=== PATIENT | male | born 1980 | race Two or more races ===

== ENCOUNTER 2018-03-22 15:41 | Inpatient (IN) | payer OTHER ==
[~2018-03-22] VITALS: Ht 185.4 cm; Wt 106.8 kg
[2018-03-22 16:29] LABS: BASOPHILS # (AUTO) 0.04 x10^3/uL (0-0.1); BASOPHILS % (AUTO) 0 % (0-1); EOSINOPHILS # (AUTO) 0.12 x10^3/uL (0-0.4); EOSINOPHILS % (AUTO) 1 % (1-7); LYMPHOCYTES # (AUTO) 2.51 x10^3/uL (1-3.4); LYMPHOCYTES % (AUTO) 26 % (22-44); MD NO; MEAN CORPUSCULAR HEMOGLOBIN 31.1 pg (27.5-34.5); MEAN CORPUSCULAR HGB CONC 33.4 g/dL (33.2-36.2); MEAN CORPUSCULAR VOLUME 93.1 fL (81-97); MEAN PLATELET VOLUME 8.3 fL (7.4-10.4); MONOCYTES # (AUTO) 0.63 x10^3/uL (0.2-0.8); MONOCYTES % (AUTO) 7 % (2-9); NEUTROPHILS # (AUTO) 6.32 x10^3/uL (1.8-6.8); NEUTROPHILS % (AUTO) 66 % (42-75); PLATELET COUNT 279 x10^3/uL (130-400); RED BLOOD COUNT 5.41 x10^6/uL (4.38-5.82); RED CELL DISTRIBUTION WIDTH 13.4 % (9.4-14.8)
[2018-03-22 16:38] LABS: ALANINE AMINOTRANSFERASE 47 U/L (12-78); ALBUMIN 3.7 g/dL (3.4-5.0); ANION GAP 8 mmol/L (5-15); CALCIUM 8.2 mg/dL (8.5-10.1); CHLORIDE 109 mmol/L (98-107); CREATININE 1.46 mg/dL (0.7-1.3)
[2018-03-22 16:41] LABS: ALKALINE PHOSPHATASE 72 U/L (45-117); BILIRUBIN,TOTAL 0.7 mg/dL (0.2-1.0); TOTAL PROTEIN 7.1 g/dL (6.4-8.2)
[2018-03-22 17:40] LABS: MICROSCOPIC AUTO
[2018-03-22 17:45] LABS: CULTURE INDICATED? NO
[2018-03-22] MEDS ORDERED: MORPHINE SULFATE 4 MG/ML, 1ML ONE (18:11)
[2018-03-22] MEDS ORDERED: ONDANSETRON 2MG/ML, 2ML ONE (18:11)
[2018-03-22] MEDS ORDERED: ONDANSETRON 2MG/ML, 2ML IVPush ONE (18:30)
[2018-03-22] MEDS ORDERED: MORPHINE SULFATE 4 MG/ML, 1ML IVPush PRN (18:30)
[2018-03-22 20:27] VITALS: BP 106/68
[2018-03-22] MEDS ORDERED: hydrALAzine 20 MG/ML, 1ML IVPush PRN (20:30)
[2018-03-22] MEDS ORDERED: morphine SULFATE 10 MG/ML, 1ML IVPush PRN (20:30)
[2018-03-22] MEDS ORDERED: BISACODYL 10 MG SUPP PR PRN (20:30)
[2018-03-22] MEDS ORDERED: ONDANSETRON ODT 4 MG PO PRN (20:30)
[2018-03-22] MEDS ORDERED: PROMETHAZINE 25 MG/ML, 1ML IM PRN (20:30)
[2018-03-22] MEDS ORDERED: LABETALOL 5MG/ML, 20ML IVPush PRN (20:30)
[2018-03-22] MEDS ORDERED: ONDANSETRON 2MG/ML, 2ML IVPush PRN (20:30)
[2018-03-22] MEDS ORDERED: DOCUSATE 100 MG CAPSULE PO PRN (20:30)
[2018-03-22] MEDS ORDERED: POLYETHYLENE GLYCOL 17 GM PACKET PO PRN (20:30)
[2018-03-22 21:20] LABS: FREE T4 (FREE THYROXINE) 1.19 ng/dL (0.76-1.46); THYROID STIMULATING HORMONE 3.96 mIU/L (0.358-3.740)
[2018-03-22 21:45] LABS: HEMOGLOBIN A1C 5.9 % (4.2-6.3)
[2018-03-22] MEDS: OXYcodone IR 5MG TABLET PO PRN (22:00)
[2018-03-22] MEDS: CEFOXITIN 1,000 MG in DEXTROSE 5% 50 ML IV SCH (23:50)
[2018-03-23] MEDS: D5%-0.9% NACL+KCL 20MEQ 1,000 ML IV SCH ×2 (00:47→16:00)
[2018-03-23] MEDS: METRONIDAZOLE PMX 500MG/100ML 100 ML IV SCH ×3 (00:48→17:21)
[2018-03-23 01:24] VITALS: BP 119/70
[2018-03-23] MEDS: OXYcodone IR 5MG TABLET PO PRN ×4 (02:02→22:02)
[2018-03-23 05:53] LABS: BASOPHILS # (AUTO) 0.06 x10^3/uL (0-0.1); BASOPHILS % (AUTO) 1 % (0-1); EOSINOPHILS # (AUTO) 0.26 x10^3/uL (0-0.4); EOSINOPHILS % (AUTO) 3 % (1-7); LYMPHOCYTES # (AUTO) 3.06 x10^3/uL (1-3.4); LYMPHOCYTES % (AUTO) 37 % (22-44); MD NO; MEAN CORPUSCULAR HEMOGLOBIN 31.6 pg (27.5-34.5); MEAN CORPUSCULAR HGB CONC 34.3 g/dL (33.2-36.2); MEAN PLATELET VOLUME 8.5 fL (7.4-10.4); MONOCYTES # (AUTO) 0.71 x10^3/uL (0.2-0.8); MONOCYTES % (AUTO) 9 % (2-9); NEUTROPHILS # (AUTO) 4.13 x10^3/uL (1.8-6.8); NEUTROPHILS % (AUTO) 50 % (42-75); PLATELET COUNT 231 x10^3/uL (130-400); RED BLOOD COUNT 5.01 x10^6/uL (4.38-5.82); RED CELL DISTRIBUTION WIDTH 13.2 % (9.4-14.8)
[2018-03-23 06:10] LABS: ALBUMIN 3.4 g/dL (3.4-5.0); ANION GAP 10 mmol/L (5-15); CALCIUM 8.2 mg/dL (8.5-10.1); CHLORIDE 111 mmol/L (98-107)
[2018-03-23 06:19] LABS: ALANINE AMINOTRANSFERASE 39 U/L (12-78); ALKALINE PHOSPHATASE 63 U/L (45-117); BILIRUBIN,TOTAL 0.7 mg/dL (0.2-1.0); CHOL/HDL RATIO 3.4; CHOLESTEROL, TOTAL 144 mg/dL (140-239); CREATININE 1.33 mg/dL (0.7-1.3); HDL CHOL % 29 % (26-37); HDL CHOLESTEROL (DIRECT) 42 mg/dL (40-60); LDL CHOLESTEROL,CALCULATED 73 mg/dL (54-169); LDL/HDL RATIO 1.7 (0.5-3.0); TOTAL PROTEIN 6.5 g/dL (6.4-8.2); TRIGLYCERIDES 143 mg/dL (50-200); VLDL CHOLESTEROL 29 mg/dL (0-25)
[2018-03-23 07:44] VITALS: BP 100/65
[2018-03-23] MEDS: CEFOXITIN 1,000 MG in DEXTROSE 5% 50 ML IV SCH ×2 (07:53→16:43)
[2018-03-23 18:47] VITALS: BP 104/70
[2018-03-24] MEDS: CEFOXITIN 1,000 MG in DEXTROSE 5% 50 ML IV SCH ×2 (00:02→08:03)
[2018-03-24] MEDS ORDERED: D5%-0.9% NACL+KCL 20MEQ 1,000 ML IV SCH (00:30)
[2018-03-24 01:01] VITALS: BP 108/75
[2018-03-24] MEDS: METRONIDAZOLE PMX 500MG/100ML 100 ML IV SCH ×2 (01:11→09:34)
[2018-03-24] MEDS: OXYcodone IR 5MG TABLET PO PRN ×3 (02:32→13:18)
[2018-03-24 05:56] LABS: BASOPHILS # (AUTO) 0.04 x10^3/uL (0-0.1); BASOPHILS % (AUTO) 1 % (0-1); EOSINOPHILS # (AUTO) 0.16 x10^3/uL (0-0.4); EOSINOPHILS % (AUTO) 2 % (1-7); LYMPHOCYTES # (AUTO) 1.31 x10^3/uL (1-3.4); LYMPHOCYTES % (AUTO) 17 % (22-44); MD NO; MEAN CORPUSCULAR HEMOGLOBIN 31.3 pg (27.5-34.5); MEAN CORPUSCULAR HGB CONC 34.4 g/dL (33.2-36.2); MEAN CORPUSCULAR VOLUME 90.9 fL (81-97); MONOCYTES # (AUTO) 0.57 x10^3/uL (0.2-0.8); MONOCYTES % (AUTO) 7 % (2-9); NEUTROPHILS # (AUTO) 5.65 x10^3/uL (1.8-6.8); NEUTROPHILS % (AUTO) 73 % (42-75); PLATELET COUNT 230 x10^3/uL (130-400); RED BLOOD COUNT 4.93 x10^6/uL (4.38-5.82); RED CELL DISTRIBUTION WIDTH 13.1 % (9.4-14.8)
[2018-03-24 06:08] LABS: ANION GAP 11 mmol/L (5-15); CALCIUM 8.4 mg/dL (8.5-10.1); CHLORIDE 109 mmol/L (98-107)
[2018-03-24 06:10] LABS: CREATININE 1.36 mg/dL (0.7-1.3)
[2018-03-24 07:29] VITALS: BP 132/82
[2018-03-24] MEDS ORDERED: HYDR-3653 PO (09:52)
[2018-03-24] MEDS ORDERED: AMOX1TAB64 PO (09:52)
[2018-03-24] MEDS ORDERED: ONDA4TAB13 PO (09:52)
[2018-03-24 13:20] VITALS: BP 132/82
[2018-03-24] MEDS ORDERED: NAPR-685 PO (13:35)
== END 2018-03-24 14:00 | disposition home or self-care (01) | DRG 444 ==
LOC: ED 17:53 → EDIP 18:36 → 4NOR 19:55 → DCLOUNGE 03-24 13:46
PROVIDERS: ADMIT Internal Medicine; ATTEND Internal Medicine
DX: K82.8 Other specified diseases of gallbladder (principal); N17.0 Acute kidney failure with tubular necrosis; E86.0 Dehydration; M54.9 Dorsalgia, unspecified
CPT/HCPCS: 36415; 76700; 78227; 80048; 80053; 80061; 81001; 83036; 83690; 83735; 84439; 84443; 85025; 96374; 99285; G0378; J2405; A9537; C9898; J0694; J3480